=== PATIENT | male | born 1960 | race Caucasian/White ===

== ENCOUNTER 2018-02-26 23:02 | Emergency (ER) | payer MEDICAID ==
[~2018-02-26] VITALS: Ht 183.5 cm; Wt 81.6 kg
[~2018-02-26 23:02] MED LIST: NKM
[2018-02-26 23:14] VITALS: BP 118/76
--- NOTE | 2018-02-26 23:22 | Emergency Room Report ---
History of Present Illness General Chief Complaint: Chest Pain Source: Patient Present Illness HPI Patient's 57-year-old male brought in by EMS after increased chest pain. Patient reported having chest pain onset approximate 6:00 in the morning. He describes this as a pain. He will not give any specifics. History is markedly limited by patient's poor cooperation. The patient stated that he smokes cigars. He reports having prior cardiac history. The patient reportedly was at a different hospital and subsequently checked himself out. Allergies: Coded Allergies: No Known Allergies (Unverified , 02/26/18) Patient History Past Medical History: see triage record Reviewed Nursing Documentation: PMH: Agreed; PSxH: Agreed Nursing Documentation-PMH Past Medical History: No History, Except For Hx Hypertension: Yes Hx Seizures: Yes Review of Systems All Other Systems: limited - by poor cooperation. Physical Exam Vital Signs Date Time Temp Pulse Resp B/P (MAP) Pulse Ox O2 Delivery O2 Flow Rate FiO2 02/26/18 22:56 98.0 78 16 118/76 98 Room Air 98.1 Sp02 EP Interpretation: reviewed, normal General Appearance: normal inspection, well appearing, no apparent distress, alert, GCS 15, Chronically Ill Head: atraumatic ENT: normal ENT inspection, hearing grossly normal, normal voice Neck: normal inspection, full range of motion, supple, no bony tend Respiratory: normal inspection, no respiratory distress, no retraction, no wheezing Cardiovascular #1: regular rate, rhythm, no edema Gastrointestinal: normal inspection, normal bowel sounds, non tender, soft, no guarding, no hernia Genitourinary: no CVA tenderness Musculoskeletal: normal inspection, back normal, normal range of motion Neurologic: normal inspection, alert, oriented x3, responsive, middle stitcher III-XII nml as tested Psychiatric: normal inspection, judgement/insight normal, mood/affect normal Skin: normal inspection, normal color, no rash Medical Decision Making Diagnostic Impression: Primary Impression: Chest pain Additional Impressions: Alcohol intoxication Gastritis ER Course Patient presented for chest pain.Differential diagnosis included but was not limited to acute coronary syndrome, pulmonary embolism, pneumonia, aortic dissection, shingles, pneumothorax, aortic dissection, esophageal rupture, pericarditis. The patient was noted to have prolonged time to presentation. The patient was noted to be intoxicated with alcohol. EKG interpreted by me showed normal sinus rhythm with rate of [address] or T wave changes.Given the patient's negative cardiac enzymes the patient be discharged home. The patient appears to have alcohol related discomfort. The patient was noted to have gradual improvement in his mental status.At this time of discharge patient ambulatory without assistance.The patient is advised to follow up with primary care doctor in 1-2 days. Patient is advised to return if any worsening condition or if any changes in status that are concerning. This report is dictated with [employer]ch[employer] tabular typist software which may occasionally lead to discrepancies related to use of this software. Labs Test 02/27/18 00:20 White Blood Count 4.1 K/UL (4.8-10.8) Red Blood Count 3.37 M/UL (4.70-6.10) Hemoglobin 12.4 G/DL (14.2-18.0) Hematocrit 34.4 % (42.0-52.0) Mean Corpuscular Volume 102 FL (80-99) Mean Corpuscular Hemoglobin 36.7 PG (27.0-31.0) Mean Corpuscular Hemoglobin Concent 35.9 G/DL (32.0-36.0) Red Cell Distribution Width 12.4 % (11.6-14.8) Platelet Count 88 K/UL (150-450) Mean Platelet Volume 6.7 FL (6.5-10.1) Neutrophils (%) (Auto) % (45.0-75.0) Lymphocytes (%) (Auto) % (20.0-45.0) Monocytes (%) (Auto) % (1.0-10.0) Eosinophils (%) (Auto) % (0.0-3.0) Basophils (%) (Auto) % (0.0-2.0) Sodium Level 139 MMOL/L (136-145) Potassium Level 3.3 MMOL/L (3.5-5.1) Chloride Level 102 MMOL/L (98-107) Carbon Dioxide Level 27 MMOL/L (21-32) Anion Gap 11 mmol/L (5-15) Blood Urea Nitrogen 8 mg/dL (7-18) Creatinine 0.8 MG/DL (0.55-1.30) Estimat Glomerular Filtration Rate > 60 mL/min (>60) Glucose Level 114 MG/DL (74-106) Calcium Level 8.5 MG/DL (8.5-10.1) Total Bilirubin 0.6 MG/DL (0.2-1.0) Aspartate Amino Transf (AST/SGOT) 88 U/L (15-37) Alanine Aminotransferase (ALT/SGPT) 54 U/L (12-78) Alkaline Phosphatase 70 U/L (46-116) Total Creatine Kinase 491 U/L (26-308) Creatine Kinase MB 4.0 NG/ML (0.0-3.6) Creatine Kinase MB Relative Index 0.8 Troponin I 0.018 ng/mL (0.000-0.056) Total Protein 7.4 G/DL (6.4-8.2) Albumin 3.4 G/DL (3.4-5.0) Globulin 4.0 g/dL Albumin/Globulin Ratio 0.9 (1.0-2.7) Lipase 361 U/L (73-393) Serum Alcohol 331 mg/dL Last Vital Signs Date Time Temp Pulse Resp B/P (MAP) Pulse Ox O2 Delivery O2 Flow Rate FiO2 02/26/18 23:14 78 16 Room Air 02/26/18 23:14 98.1 118/76 98 98.1 Status: improved Disposition: HOME, SELF-CARE Condition: Stable Scripts Omeprazole Magnesium (PRILOSEC OTC) 20 Mg Tablet. 20 MG ORAL DAILY, #30 TAB Prov: Tristen Cristobal 02/27/18 Tristen Cristobal Feb 26, 2018 23:22
[2018-02-26] MEDS ORDERED: Thiamine HCl 100 MG in D5W 55 ML IVPB SCH (23:30)
[2018-02-27 00:32] LABS: HEMATOCRIT 34.4 % (42.0-52.0); HEMOGLOBIN 12.4 G/DL (14.2-18.0); MEAN CORPUSCULAR VOLUME 102 FL (80-99); PLATELET COUNT 88 K/UL (150-450); RED BLOOD COUNT 3.37 M/UL (4.70-6.10); RED CELL DISTRIBUTION WIDTH 12.4 % (11.6-14.8); WHITE BLOOD COUNT 4.1 K/UL (4.8-10.8)
[2018-02-27 00:40] LABS: ANION GAP 11 mmol/L (5-15); BLOOD UREA NITROGEN 8 mg/dL (7-18); CALCIUM 8.5 MG/DL (8.5-10.1); CARBON DIOXIDE 27 MMOL/L (21-32); CHLORIDE 102 MMOL/L (98-107); CREATININE 0.8 MG/DL (0.55-1.30); POTASSIUM 3.3 MMOL/L (3.5-5.1); SODIUM 139 MMOL/L (136-145)
[2018-02-27 00:51] LABS: ALANINE AMINOTRANSFERASE 54 U/L (12-78); ALBUMIN 3.4 G/DL (3.4-5.0); ALBUMIN/GLOBULIN RATIO 0.9 (1.0-2.7); ALKALINE PHOSPHATASE 70 U/L (46-116); ASPARTATE AMINO TRANSFERASE 88 U/L (15-37); BILIRUBIN,TOTAL 0.6 MG/DL (0.2-1.0); CREATINE KINASE 491 U/L (26-308)
[2018-02-27 01:10] VITALS: BP 97/53
[2018-02-27 03:10] VITALS: BP 111/57
[2018-02-27 04:55] VITALS: BP 122/65
[2018-02-27] MEDS ORDERED: PRILOSEC OTC20 MG ORAL (05:11)
[2018-02-27 05:45] VITALS: BP 120/65
--- NOTE | 2018-02-27 10:17 | Diagnostic Imaging Report ---
Indication: Reason For Exam: SOB Technique: One view of the chest Comparison: none Findings: There is evidence of prior CABG. The lungs and pleural spaces are clear. The heart size is normal. The aorta is calcified Impression: Prior CABG. No acute process
--- NOTE | 2018-03-01 17:49 | Cardiology Report ---
APPROVED REPORT EKG Measurement Heart [id number] Normal sinus rhythm Anterior infarct, age undetermined Abnormal ECG
== END 2018-02-27 05:56 | disposition home or self-care (01) ==
LOC: EDBD 23:02 → EMR 23:16
DX: R07.9 Chest pain, unspecified (principal); F10.129 Alcohol abuse with intoxication, unspecified; K29.70 Gastritis, unspecified, without bleeding; I10 Essential (primary) hypertension; Z86.69 Personal history of other diseases of the nervous system and sense organs; Z95.1 Presence of aortocoronary bypass graft
CPT/HCPCS: 36415; 71045; 80053; 80329; 82550; 82553; 83690; 84484; 85025; 93005; 96374; 99283; 99284

== ENCOUNTER 2018-02-27 15:49 | Emergency (ER) | payer MEDICAID ==
[~2018-02-27] VITALS: Ht 182.9 cm; Wt 81.6 kg
[~2018-02-27 15:49] MED LIST changes: +PRILOSEC OTC20 MG ORAL
--- NOTE | 2018-02-27 16:37 | Emergency Room Report ---
History of Present Illness General Chief Complaint: General Complaint Source: EMS Present Illness HPI 57-year-old male presents to the emergency department brought by ambulance complaining of generalized weakness and "needs a bed to rest in." Patient denies fevers, chills, chest pain, dizziness, nausea, vomiting, sudden onset headache. Patient was discharged from the emergency department here at 5 AM after normal cardiac workup. Patient presented with discharge paperwork from [facility] regarding alcohol abuse. Pt. denies ETOH today. Denies pain or difficulty breathing. Allergies: Coded Allergies: No Known Allergies (Unverified , 02/26/18) Patient History Past Medical History: see triage record Past Surgical History: none Pertinent Family History: none Social History: Reports: alcohol use Reviewed Nursing Documentation: PMH: Agreed; PSxH: Agreed Nursing Documentation-PMH Past Medical History: No History, Except For Hx Cardiac Problems: Yes - ALCOHOL, [place] x2 in the past Hx Hypertension: Yes Hx Seizures: Yes Review of Systems All Other Systems: negative except mentioned in HPI Physical Exam Vital Signs Date Time Temp Pulse Resp B/P (MAP) Pulse Ox O2 Delivery O2 Flow Rate FiO2 02/27/18 15:42 99.0 88 16 136/84 99 99.0 Sp02 EP Interpretation: reviewed, normal General Appearance: no apparent distress, alert, GCS 15, non-toxic, other - Disheveled Head: normocephalic, atraumatic Eyes: bilateral eye normal inspection, bilateral eye PERRL ENT: hearing grossly normal, normal voice Neck: full range of motion Respiratory: chest non-tender, lungs clear, normal breath sounds, no rhonchi, no respiratory distress, no wheezing, speaking full sentences Cardiovascular #1: regular rate, rhythm, no edema Gastrointestinal: non tender, soft Musculoskeletal: back normal, gait/station normal, normal range of motion, non- tender Neurologic: alert, oriented x3, responsive, motor strength/tone normal, sensory intact, normal gait, speech normal, grossly normal Psychiatric: judgement/insight normal Skin: normal color, no rash, warm/dry, well hydrated Medical Decision Making PA Attestation Dr. Sena is my supervising Physician whom patient management has been discussed with. Diagnostic Impression: Primary Impression: Encounter for medical screening examination ER Course 57-year-old male presents to the emergency department brought by ambulance complaining of generalized weakness and "needs a bed to rest in." Patient denies fevers, chills, chest pain, dizziness, nausea, vomiting, sudden onset headache. Patient was discharged from the emergency department here at 5 AM Patient presented with discharge paperwork from [facility] regarding alcohol abuse. Pt. denies ETOH today. Denies pain or difficulty breathing. Ddx considered but are not limited to AMS, ETOH, infection, Trauma/Fall, CVA, [place] , Psych, homelessness -I reviewed this patient's chart from this at this morning he had negative cardiac workup. and normal labs. Vital signs: are WNL, pt. is afebrile H&PE are most consistent with Normal medical screening exam no acute injury or disease noted at this time. pt. is NAD, NON-toxic, able to answer questions appropriately, pt. is oriented, and no signs of trauma or focal neurological deficits. 57-year-old male presents to the emergency department brought by ambulance complaining of generalized weakness and "needs a bed to rest in." Patient denies fevers, chills, chest pain, dizziness, nausea, vomiting, sudden onset headache. Patient was discharged from the emergency department here at 5 AM after normal cardiac workup. Patient presented with discharge paperwork from [facility] ER regarding alcohol abuse. Pt. denies ETOH today. Denies pain or difficulty breathing. -Pt. is homeless ORDERS: none required at this time, the diagnosis is clinical- I do not feel repeat labs would change my management given normal results this a.m. ED INTERVENTIONS: None required at this time, pt is allowed to rest. d/w pt. will d/c with list of homeless shelters. Pt. is stable for close outpatient follow up. DISCHARGE: At this time pt. is stable for d/c to home. Will provide printed patient care instructions, and any necessary prescriptions. Care plan and follow up instructions have been discussed with the patient prior to discharge. Last Vital Signs Date Time Temp Pulse Resp B/P (MAP) Pulse Ox O2 Delivery O2 Flow Rate FiO2 02/27/18 15:42 99.0 88 16 136/84 99 99.0 Disposition: HOME, SELF-CARE Condition: Stable Patient Instructions: Medical Screening Exam Additional Instructions: Take any previously prescribed medications as directed. *Discontinue excessive alcohol use. Follow up with a Primary Care Provider in 3-5 days, even if your symptoms have resolved. --Please review list of primary care clinics, if you do not already have a primary care provider Return sooner to ED if new symptoms occur, or current symptoms become worse. - Please note that this Emergency Department Report was dictated using Visiarcwinchman/crane operator technology software, occasionally this can lead to erroneous entry secondary to interpretation by the dictation equipment. Kristy Thurman Feb 27, 2018 16:37
[2018-02-27 16:50] VITALS: BP 128/74
== END 2018-02-27 16:50 | disposition home or self-care (01) ==
LOC: EDBD 15:49 → EMR 16:25
DX: R83.1 Abnormal level of hormones in cerebrospinal fluid (principal); I10 Essential (primary) hypertension; R42 Dizziness and giddiness; R11.2 Nausea with vomiting, unspecified; I25.2 Old myocardial infarction; Z86.69 Personal history of other diseases of the nervous system and sense organs
CPT/HCPCS: 99282